=== PATIENT | female | born 1945 | race Caucasian/White ===

== ENCOUNTER 2018-05-05 08:55 | Inpatient (IN) | payer OTHER ==
[~2018-05-05] VITALS: Ht 154.9 cm; Wt 55.1 kg
[~2018-05-05 08:55] MED LIST: ATENOLOL25 M1 PO; AUGMENTIN 500M500 MG PO; AUGMENTIN 875 M1 TAB PO; AUGMENTIN 875875 MG PO; DAKINS TOP; DIAZEPAM2 M1 PO; DOCUSATE SODIU100 MG PO; Dulcolax PO; ESCITALOPRAM OXA5 MG PO; METAMUCIL1 PAC PO; MIRALAX17 GM PO; MULTIVITAMIN1 TAB PO; NORCO 325 MG-51 TAB PO; OMEPRAZOLE D/R20 MG PO; PREVACID15 M1 PO; SYNTHROID88 MCG PO; TRAMADOL HCL50 M1 PO; TRAMADOL50 MG PO; ULTRAM(MONOGRAP50 MG PO; VALIUM2 MG PO
--- NOTE | 2018-05-05 09:46 | ED GI/GU/ABDOMINAL COMPLAINT ---
History of Present Illness General Chief Complaint: General Adult Stated Complaint: SENT IN BY MD FOR VOMITING; ABD PAIN X 1WEEK Source: patient Exam Limitations: no limitations Vital Signs & Intake/Output Vital Signs & Intake/Output Vital Signs Date Time Temp Pulse Resp B/P B/P Pulse O2 O2 Flow FiO2 Mean Ox Delivery Rate 05/05 1556 99.1 75 18 146/75 98 Room Air 05/05 1420 98.7 74 20 137/67 98 Room Air 05/05 1252 98.7 77 20 125/70 99 Room Air 05/05 1108 98.3 80 20 129/60 100 Room Air 05/05 0902 99.1 76 16 112/77 95 Room Air Allergies Coded Allergies: Sulfa (Sulfonamide Antibiotics) (SWELLING 12/26/15) amoxicillin (UPSET STOMACH 12/26/15) clavulanic acid (UPSET STOMACH 12/26/15) Reconcile Medications Atenolol 25 MG TABLET 1 TAB PO DAILY HEART (Reported) Escitalopram Oxalate 5 MG TABLET 1.5 TAB PO DAILY MENTAL HEALTH (Reported) Lansoprazole (Prevacid) 15 MG CAPSULE.DR 1 CAP PO DAILY GI (Reported) Levothyroxine Sodium (Synthroid) 88 MCG TABLET 1 TAB PO DAILY AC THYROID ( Reported) Triage Note: 72 Y/O FEMALE C/O DIFFUSE ABDOMINAL PAIN SINCE LAST FRIDAY. PT STATES HX COLOSTOMY AND STATES THIS FEELS "DIFFERENT". STATES THE PAIN IS AROUND UMBILICUS AND RUQ, OCCASIONALLY RADIATING INTO R FLANK. +N, VOMITED X 1 FRIDAY AND AGAIN FRIDAY. STATES COLOSTOMY IS DRAINING "NORMAL" STOOL AND IN "NORMAL" AMOUNTS. DENIES URINARY SYMPTOMS OTHER THAN URINE BEING "DARK, I AM DEHYDRATED". TEMPERATURE 99.2 AT HOME PER PT. TAKEN TO ROOM 2 FOR EVAL CHANGING INTO GOWN. Triage Nurses Notes Reviewed? yes LMP (ages 10-50): post menopausal, unknown ? N Is pt currently ? No Onset: Abrupt Duration: week(s): (1), constant, continues in ED, getting worse Timing: single episode today Quality/Severity: fullness, moderate, sharpness Severity Numbers: 8 Location: periumbilical Radiation: no radiation Activities at Onset: none Prior Abdominal Problems: similar symptoms Past Sexual History: Unobtainable at this time No Modifying Factors: none Associated Symptoms: abdominal pain, heartburn, loss of appetite, nausea/ vomiting HPI: 72-year-old female past medical history of esophagitis, scleroderma, diverticulitis status post colostomy presents for evaluation of periumbilical abdominal pain nausea and vomiting. Patient reports symptoms started about one week ago with the abdominal pain and nausea. She has been taking Prevacid without any improvement. She has been unable to eat and drink much due to the pain nausea and vomiting. She reports several days ago the pain started to radiate up into her throat and chest. She describes as a burning pain. It is similar to previous but more severe. No recent abdominal surgeries. She feels like normal stool is moving into her colostomy without blood or melena. No hematemesis. She has had low-grade temps at home. She denies shortness of breath hemoptysis or lower extremity edema urinary symptoms. (Ben Crystal) Past History Travel History Traveled to [place] past 21 day No Medical History Any Pertinent Medical History? see below for history Neurological: NONE EENT: NONE Cardiovascular: hyperlipidemia, PALPITATIONS Respiratory: NONE Gastrointestinal: diverticulitis, COLONIC STRICTURE COLOSTOMY Hepatic: NONE Renal: NONE Musculoskeletal: fracture (fracture of malleolas ), REYNAUDS Psychiatric: NONE Endocrine: hypothyroidism Blood Disorders: NONE Cancer(s): NONE RETAIL SALES SPECIALIST/Reproductive: NONE History of MRSA: No History of VRE: No History of CDIFF: No Surgical History Surgical History: appendectomy, colon resection, COLOSTOMY Psychosocial History Who do you live with Spouse Services at Home None What is your primary language Mongolian Tobacco Use: Never used Family History Hx Contributory? No (Ben Crystal) Review of Systems Review of Systems Constitutional: Reports: no symptoms. EENTM: Reports: no symptoms. Respiratory: Reports: no symptoms. Cardiovascular: Reports: no symptoms. GI: Reports: see HPI, abdominal pain, nausea, vomiting. Genitourinary: Reports: no symptoms. Musculoskeletal: Reports: no symptoms. Skin: Reports: no symptoms. Neurological/Psychological: Reports: no symptoms. Hematologic/Endocrine: Reports: no symptoms. Immunologic/Allergic: Reports: no symptoms. All Other Systems: Reviewed and Negative (Ben Crystal) Physical Exam Physical Exam General Appearance: well developed/nourished, no apparent distress, alert, awake Head: atraumatic, normal appearance Eyes: Bilateral: normal appearance, PERRL, EOMI. Ears, Nose, Throat, Mouth: hearing grossly normal, moist mucous membrane Neck: normal inspection, supple, full range of motion Respiratory: normal breath sounds, chest non-tender, no respiratory distress, lungs clear Cardiovascular: regular rate/rhythm, normal peripheral pulses Peripheral Pulses: 2+ radial (R), 2+ radial (L) Gastrointestinal: normal bowel sounds, soft, no organomegaly, tenderness ( PERIUMBILICAL, EPIGASTRIC ) Back: normal inspection, normal range of motion, no vertebral tenderness Extremities: normal range of motion Neurologic/Psych: no motor/sensory deficits, awake, alert, oriented x 3, normal gait Skin: intact, normal color, warm/dry Core Measures ACS in differential dx? No Sepsis Present: No Sepsis Focused Exam Completed? No (Akash JOHNSON,Ben) Progress Differential Diagnosis: AAA, AMI, biliary colic, bowel obstruction, colon cancer , cholecystitis, diverticulitis, gastritis, ischemic bowel, inflamm bowel dis, kidney stone, Manju-Stanley tear, pancreatitis, PID/cervicitis, peptic ulcer, PUD /GERD, SBO, UTI/pyelo Plan of Care: Orders Procedure Date/time Status Nothing by Mouth 05/06 B Active Pathway - chart 05/05 1700 Active Code Status 05/05 1700 Active Patient Data 05/05 1624 Active Admit to inpatient 05/05 1504 Active Intake & Output 05/05 1011 Active EKG 05/05 0946 Active URINALYSIS 05/05 0911 Complete TROPONIN LEVEL 05/05 0911 Complete LIPASE 05/05 0911 Complete COMPREHENSIVE METABOLIC PANEL 05/05 0911 Complete CBC WITHOUT DIFFERENTIAL 05/05 0911 Complete VTE Mechanical Prophylaxis 05/05 UNK Active Vital Signs 05/05 UNK Active Intake & Output 05/05 UNK Active Activity/Ambulation 05/05 UNK Active Current Medications Sig/Abundio Start time Last Medication Dose Stop Time Status Admin Atenolol 25 MG DAILY 05/06 09 UNVr (Tenormin) Escitalopram Oxalate 7.5 MG DAILY 05/06 09 UNVr (Lexapro) Levothyroxine Sodium 0.088 MG DAILY AC 05/06 07 UNVr (Synthroid) Heparin Sodium 5,000 UNIT Q8 05/05 2200 UNVr (Porcine) Pantoprazole Sodium 40 MG BID 05/05 2200 UNVr (Protonix) Dextrose/Sodium 1,000 ML .Q10H 05/05 1700 UNVr Chloride (D5W-1/2 Normal Saline 1000ML) Ondansetron HCl 4 MG Q8P PRN 05/05 1700 UNVr (Zofran) Laboratory Tests 05/05/18 1125: Urine Color YEL, Urine Clarity CLEAR, Urine pH 6.0, Ur Specific Hiram <= 1.005 , Urine Protein NEG, Urine Ketones 15 H, Urine Nitrite NEG, Urine Bilirubin NEG , Urine Urobilinogen 0.2, Ur Leukocyte Esterase NEG, Ur Microscopic EXAM NOT REQUIRED, Urine Hemoglobin NEG, Urine Glucose NEG 05/05/18 0957: Anion Gap 16, Estimated GFR > 60, BUN/Creatinine Ratio 21.1, Glucose 88, Calcium 10.1, Total Bilirubin 0.7, AST 59 H, ALT 52, Alkaline Phosphatase 96, Troponin I < 0.01, Total Protein 7.9, Albumin 4.8, Globulin 3.1, Albumin/Globulin Ratio 1.5, Lipase 98, CBC w Diff NO MAN DIFF REQ, RBC 5.02, MCV 89.6, MCH 30.5, MCHC 34.0, RDW 13.7, MPV 9.4, Gran % 78.4 H, Lymphocytes % 13.8 L, Monocytes % 7.1, Eosinophils % 0.3, Basophils % 0.4, Absolute Granulocytes 6.4, Absolute Lymphocytes 1.1 L, Absolute Monocytes 0.6, Absolute Eosinophils 0, Absolute Basophils 0 Patient is here with periumbilical abdominal pain nausea and vomiting. On exam her vital signs are stable. She has diffuse abdominal pain worse in the epigastric and periumbilical areas. Labs CT scans of the chest, pelvis ordered. EKG ordered. Patient medicated with IV Protonix fluids Zofran and GI cocktail. Blood work is not showing any significant acute finding. CT scan does show evidence of a high-grade small bowel obstruction and esophagitis. Patient is still reporting significant nausea and diffuse abdominal pain. Spoke with Dr. Marti who has seen the patient in the past he recommends admission for bowel rest and fluids. Patient was given IV Tylenol for additional pain control additional doses of Reglan and Zofran were required for nausea. There's been no vomiting here. Patient be admitted to general surgery for further evaluation and treatment case discussed with Dr. matos he agrees. Diagnostic Imaging: Viewed by Me: CT Scan. Discussed w/RAD: CT Scan. Radiology Impression: PATIENT: JOSE BENAVIDES PRESENT AGE: 72 PATIENT ACCOUNT NO: [id number] : 46 LOCATION: [facility] ORDERING PHYSICIAN: Ben JOHNSON SERVICE DATE: 05/05/18-1004 EXAM TYPE: CAT - CT ABD & PELVIS W IV CONTRAST; CT CHEST W IV CONTRAST EXAMINATION: CT CHEST WITH CONTRAST CT ABDOMEN AND PELVIS WITH CONTRAST CLINICAL INFORMATION: Epigastric pain radiating to the chest. COMPARISON: 09/18/2017. TECHNIQUE: Multidetector volumetric imaging was performed through the chest, abdomen and pelvis following the administration of 95 mL of Optiray 320 intravenous contrast. Sagittal and coronal reformatted images were obtained on the technologist's workstation. Axial MIP volume rendering provided. DLP: 339 mGy- cm. FINDINGS: CHEST: Lungs: The central airways are patent. Minimal dependent atelectasis bilaterally. No consolidation or pleural effusion. Scattered calcified granulomata noted. Mediastinum: The heart is of normal size. There is no pericardial effusion. Central vascular structures are unremarkable. No hilar or mediastinal lymphadenopathy. The esophagus is somewhat dilated with an air- fluid level proximally. There is prominent esophageal wall thickening at the mid to distal aspect. Chest Wall/Axilla: No lymphadenopathy. No chest wall mass. ABDOMEN/PELVIS: Liver, Gallbladder, Biliary Tree: The liver is normal in size, shape, and attenuation. No focal hepatic lesion or biliary ductal dilatation is present. The gallbladder is unremarkable with no evidence of radiopaque gallstones, gallbladder wall thickening, or pericholecystic inflammatory changes. Pancreas: Unremarkable. Spleen: Unremarkable. Adrenal Glands: Unremarkable. Kidneys and Ureters: The kidneys are normal in size, shape, and attenuation. No hydronephrosis, hydroureter or calculi seen. No perinephric stranding. Bladder: Unremarkable. Gastrointestinal Tract: The stomach is distended with no definite wall thickening. There is dilatation of the proximal small bowel involving the duodenum and jejunum extending to a transition point in the anterior central abdomen, series 2 image 87. The distal small bowel is decompressed. There is a left lower quadrant colostomy. Much of the colon is also decompressed. Colonic diverticulosis noted without diverticulitis. No free air or free fluid. Abdominal Wall: No hernia seen. Left lower quadrant colostomy. Lymphovascular Structures: Lymph nodes: Normal. Vascular: Normal caliber aorta. Mild atherosclerotic calcifications. Pelvic Viscera: The uterus is not seen. No adnexal mass. OSSEOUS STRUCTURES: No suspicious sclerotic or lytic bone lesions are identified. Mild degenerative change of the spine. IMPRESSION: 1. Prominent esophageal wall thickening, suspicious for esophagitis. 2. Dilated small bowel with a transition point in the midabdomen, consistent with a small bowel obstruction. There is decompression of the distal small bowel and colon, suggesting this may be high-grade. DICTATED BY: Álvaro Soliz MD DATE/TIME DICTATED:05/05/181127 INTERNAL MEDICINE NURSE PRACTITIONER:YOMAIRA DATE/TIME TRANSCRIBED:05/05/181127 CONFIDENTIAL, DO NOT COPY WITHOUT APPROPRIATE AUTHORIZATION. <Electronically signed in Other Vendor System> SIGNED BY: Álvaro Soliz MD 05/05/18 1138 Initial ED EKG: normal sinus rhythm, LEFT ATRIAL ABN (Ben Crystal) Departure Departure Disposition: STILL A PATIENT Condition: Stable Clinical Impression Primary Impression: SBO (small bowel obstruction) Referrals: Timothy KRISHNAMURTHY,Alessio Guajardo (PCP/Family) Departure Forms: Customer Survey General Discharge Information Admission Note Spoke With: Dwight Marti Jr., DO Documentation of Exam: Documentation of any treatments & extenuating circumstances including Concerns Regarding Discharge (functional status, medication knowledge or non-compliance, living conditions, etc.) that warrant an admission rather than observation: [ Serial labs, bowel rest, surgical consult, IV FLUIDS ] (Ben Crystal) PA/WORLD HISTORY TEACHER Co-Sign Statement Statement: ED Attending supervision documentation- x I saw and evaluated the patient. I have also reviewed all the pertinent lab results and diagnostic results. I agree with the findings and the plan of care as documented in the PA's/WORLD HISTORY TEACHER's documentation. N/V, abdominal pain with SBO [] I have reviewed the ED Record and agree with the PA's/WORLD HISTORY TEACHER's documentation. [] Additions or exceptions (if any) to the PAs/WORLD HISTORY TEACHER's note and plan are summarized below: [] (Michele KRISHNAMURTHY,Fletcher)
[2018-05-05 10:05] LABS: ABSOLUTE BASOPHIL COUNT 0 /CUMM (0.0-0.2); ABSOLUTE EOSINOPHIL COUNT 0 /CUMM (0.0-0.7); ABSOLUTE GRANULOCYTE CT 6.4 /CUMM (1.4-6.5); ABSOLUTE LYMPH COUNT 1.1 /CUMM (1.2-3.4); ABSOLUTE MONOCYTE COUNT 0.6 /CUMM (0.10-0.60); BASOPHIL % 0.4 % (0.0-2.0); EOSINOPHIL % 0.3 % (0-5); GRANULOCYTE % 78.4 % (42.2-75.2); MEAN CORPUSCULAR HGB 30.5 PG (27.0-31.0); MEAN CORPUSCULAR VOLUME 89.6 FL (81.0-99.0); MEAN PLATELET VOLUME 9.4 FL (7.4-10.4); PLATELET COUNT 226 /CUMM (130-400); RBC DISTRIBUTION WIDTH 13.7 % (11.5-14.5); RED BLOOD CELL CT 5.02 /CUMM (4.20-5.40); WHITE BLOOD CELL COUNT 8.1 /CUMM (4.8-10.8)
--- NOTE | 2018-05-05 11:39 | CT SCAN REPORT ---
EXAMINATION: CT CHEST WITH CONTRAST CT ABDOMEN AND PELVIS WITH CONTRAST CLINICAL INFORMATION: Epigastric pain radiating to the chest. COMPARISON: 09/18/2017. TECHNIQUE: Multidetector volumetric imaging was performed through the chest, abdomen and pelvis following the administration of 95 mL of Optiray 320 intravenous contrast. Sagittal and coronal reformatted images were obtained on the technologist's workstation. Axial MIP volume rendering provided. DLP: 339 mGy-cm. FINDINGS: CHEST: Lungs: The central airways are patent. Minimal dependent atelectasis bilaterally. No consolidation or pleural effusion. Scattered calcified granulomata noted. Mediastinum: The heart is of normal size. There is no pericardial effusion. Central vascular structures are unremarkable. No hilar or mediastinal lymphadenopathy. The esophagus is somewhat dilated with an air-fluid level proximally. There is prominent esophageal wall thickening at the mid to distal aspect. Chest Wall/Axilla: No lymphadenopathy. No chest wall mass. ABDOMEN/PELVIS: Liver, Gallbladder, Biliary Tree: The liver is normal in size, shape, and attenuation. No focal hepatic lesion or biliary ductal dilatation is present. The gallbladder is unremarkable with no evidence of radiopaque gallstones, gallbladder wall thickening, or pericholecystic inflammatory changes. Pancreas: Unremarkable. Spleen: Unremarkable. Adrenal Glands: Unremarkable. Kidneys and Ureters: The kidneys are normal in size, shape, and attenuation. No hydronephrosis, hydroureter or calculi seen. No perinephric stranding. Bladder: Unremarkable. Gastrointestinal Tract: The stomach is distended with no definite wall thickening. There is dilatation of the proximal small bowel involving the duodenum and jejunum extending to a transition point in the anterior central abdomen, series 2 image 87. The distal small bowel is decompressed. There is a left lower quadrant colostomy. Much of the colon is also decompressed. Colonic diverticulosis noted without diverticulitis. No free air or free fluid. Abdominal Wall: No hernia seen. Left lower quadrant colostomy. Lymphovascular Structures: Lymph nodes: Normal. Vascular: Normal caliber aorta. Mild atherosclerotic calcifications. Pelvic Viscera: The uterus is not seen. No adnexal mass. OSSEOUS STRUCTURES: No suspicious sclerotic or lytic bone lesions are identified. Mild degenerative change of the spine. IMPRESSION: 1. Prominent esophageal wall thickening, suspicious for esophagitis. 2. Dilated small bowel with a transition point in the midabdomen, consistent with a small bowel obstruction. There is decompression of the distal small bowel and colon, suggesting this may be high-grade.
--- NOTE | 2018-05-05 16:29 | Admission Core Measures ---
Acute Coronary Syndrome (CM) ACS Core Measures Acute Coronary Syndrome Diagnosis No Congestive Heart Failure (NEW) CHF Core Measures Congestive Heart Failure Diagnosis No Cerebrovascular Accident CVA Core Measures CVA/TIA Diagnosis No Venous Thromboembolism VTE Core Ella (View Protocol) VTE Risk Factors Age>40 No Mechanical VTE Prophylaxis d/t N/A MechProphylax Ordered No VTE Pharm Prophylaxis d/t NA PharmProphylax ordered Problem List As ranked by this Provider includes Assessment & Plan 1. SBO (small bowel obstruction) HOME MEDS Home Med List Atenolol 25 MG TABLET 1 TAB PO DAILY HEART (Reported) Escitalopram Oxalate 5 MG TABLET 1.5 TAB PO DAILY MENTAL HEALTH (Reported) Lansoprazole (Prevacid) 15 MG CAPSULE.DR 1 CAP PO DAILY GI (Reported) Levothyroxine Sodium (Synthroid) 88 MCG TABLET 1 TAB PO DAILY AC THYROID ( Reported)
--- NOTE | 2018-05-05 17:08 | History & Physical ---
Derian Flanagan 05/05/18 1700: General Information and HPI MD Statement: I have seen and personally examined JOSE WILKINSON and documented this H&P. The patient is a 72 year old F who presented with a patient stated chief complaint of [abdominal pain, nausea and vomiting]. Source of Information: patient, family, old records Exam Limitations: no limitations History of Present Illness: Ms. Wilkinson is a 72-year-old female past medical history of hyperthyroidism, hypertension, past surgical history of colon resection with creation of colostomy, and open lysis of adhesion for small bowel obstruction in 2016 presents with a 6-day history of slowly worsening abdominal pain with 2 episodes of nausea and vomiting 3 days ago of previously eaten food. CAT scan evidence today reveals suggestion of high-grade small bowel obstruction and esophagitis. Her primary complaints at this time are of reflex in epigastric burning. This case was discussed with her surgical attending Dr. Marti who wishes to admit the patient for observation as she has been treated in the past for conservative management of previous small bowel obstructions. His hope is that this will also resolve with conservative treatment without surgical intervention. Allergies/Medications Allergies: Coded Allergies: Sulfa (Sulfonamide Antibiotics) (SWELLING 12/26/15) amoxicillin (UPSET STOMACH 12/26/15) clavulanic acid (UPSET STOMACH 12/26/15) Home Med list Atenolol 25 MG TABLET 1 TAB PO DAILY HEART (Reported) Escitalopram Oxalate 5 MG TABLET 1.5 TAB PO DAILY MENTAL HEALTH (Reported) Lansoprazole (Prevacid) 15 MG CAPSULE.DR 1 CAP PO DAILY GI (Reported) Levothyroxine Sodium (Synthroid) 88 MCG TABLET 1 TAB PO DAILY AC THYROID ( Reported) Past History Travel History Traveled to [place] past 21 day No Medical History Neurological: NONE EENT: NONE Cardiovascular: hyperlipidemia, PALPITATIONS Respiratory: NONE Gastrointestinal: diverticulitis, COLONIC STRICTURE COLOSTOMY Hepatic: NONE Renal: NONE Musculoskeletal: fracture (fracture of malleolas ), REYNAUDS Psychiatric: NONE Endocrine: hypothyroidism Blood Disorders: NONE Cancer(s): NONE HOST/HOSTESS HEAD/Reproductive: NONE History of MRSA: No History of VRE: No History of CDIFF: No Surgical History Surgical History: appendectomy, colon resection, COLOSTOMY Past Family/Social History Psychosocial History Services at Home: None Sexual History Past Sexual History Unobtainable at this time Review of Systems Review of Systems Constitutional: Denies: no symptoms, see HPI, chills, diaphoresis, fever, malaise, weakness, unexplained weight loss. Exam & Diagnostic Data Last 24 Hrs of Vital Signs/I&O Vital Signs Date Time Temp Pulse Resp B/P B/P Pulse O2 O2 Flow FiO2 Mean Ox Delivery Rate 05/05 1556 99.1 75 18 146/75 98 Room Air 05/05 1420 98.7 74 20 137/67 98 Room Air 05/05 1252 98.7 77 20 125/70 99 Room Air 05/05 1108 98.3 80 20 129/60 100 Room Air 05/05 0902 99.1 76 16 112/77 95 Room Air Intake & Output 05/05 1600 05/05 0800 05/05 0000 Intake Total 1000 Output Total Balance 1000 Intake, IV 1000 Patient 112 lb Weight Weight Reported by Patient Measurement Method Last 24 Hrs of Labs/Dariel: Laboratory Tests 05/05/18 1125: Urine Color YEL, Urine Clarity CLEAR, Urine pH 6.0, Ur Specific [place] <= 1.005 , Urine Protein NEG, Urine Ketones 15 H, Urine Nitrite NEG, Urine Bilirubin NEG , Urine Urobilinogen 0.2, Ur Leukocyte Esterase NEG, Ur Microscopic EXAM NOT REQUIRED, Urine Hemoglobin NEG, Urine Glucose NEG 05/05/18 0957: Anion Gap 16, Estimated GFR > 60, BUN/Creatinine Ratio 21.1, Glucose 88, Calcium 10.1, Total Bilirubin 0.7, AST 59 H, ALT 52, Alkaline Phosphatase 96, Troponin I < 0.01, Total Protein 7.9, Albumin 4.8, Globulin 3.1, Albumin/Globulin Ratio 1.5, Lipase 98, CBC w Diff NO MAN DIFF REQ, RBC 5.02, MCV 89.6, MCH 30.5, MCHC 34.0, RDW 13.7, MPV 9.4, Gran % 78.4 H, Lymphocytes % 13.8 L, Monocytes % 7.1, Eosinophils % 0.3, Basophils % 0.4, Absolute Granulocytes 6.4, Absolute Lymphocytes 1.1 L, Absolute Monocytes 0.6, Absolute Eosinophils 0, Absolute Basophils 0 Diagnostic Data Other Results SERVICE DATE: 05/05/18 EXAM TYPE: CAT - CT ABD & PELVIS W IV CONTRAST; CT CHEST W IV CONTRAST EXAMINATION: CT CHEST WITH CONTRAST CT ABDOMEN AND PELVIS WITH CONTRAST CLINICAL INFORMATION: Epigastric pain radiating to the chest. COMPARISON: 09/18/2017. TECHNIQUE: Multidetector volumetric imaging was performed through the chest, abdomen and pelvis following the administration of 95 mL of Optiray 320 intravenous contrast. Sagittal and coronal reformatted images were obtained on the technologist's workstation. Axial MIP volume rendering provided. DLP: 339 mGy-cm. FINDINGS: CHEST: Lungs: The central airways are patent. Minimal dependent atelectasis bilaterally. No consolidation or pleural effusion. Scattered calcified granulomata noted. Mediastinum: The heart is of normal size. There is no pericardial effusion. Central vascular structures are unremarkable. No hilar or mediastinal lymphadenopathy. The esophagus is somewhat dilated with an air-fluid level proximally. There is prominent esophageal wall thickening at the mid to distal aspect. Chest Wall/Axilla: No lymphadenopathy. No chest wall mass. ABDOMEN/PELVIS: Liver, Gallbladder, Biliary Tree: The liver is normal in size, shape, and attenuation. No focal hepatic lesion or biliary ductal dilatation is present. The gallbladder is unremarkable with no evidence of radiopaque gallstones, gallbladder wall thickening, or pericholecystic inflammatory changes. Pancreas: Unremarkable. Spleen: Unremarkable. Adrenal Glands: Unremarkable. Kidneys and Ureters: The kidneys are normal in size, shape, and attenuation. No hydronephrosis, hydroureter or calculi seen. No perinephric stranding. Bladder: Unremarkable. Gastrointestinal Tract: The stomach is distended with no definite wall thickening. There is dilatation of the proximal small bowel involving the duodenum and jejunum extending to a transition point in the anterior central abdomen, series 2 image 87. The distal small bowel is decompressed. There is a left lower quadrant colostomy. Much of the colon is also decompressed. Colonic diverticulosis noted without diverticulitis. No free air or free fluid. Abdominal Wall: No hernia seen. Left lower quadrant colostomy. Lymphovascular Structures: Lymph nodes: Normal. Vascular: Normal caliber aorta. Mild atherosclerotic calcifications. Pelvic Viscera: The uterus is not seen. No adnexal mass. OSSEOUS STRUCTURES: No suspicious sclerotic or lytic bone lesions are identified. Mild degenerative change of the spine. IMPRESSION: 1. Prominent esophageal wall thickening, suspicious for esophagitis. 2. Dilated small bowel with a transition point in the midabdomen, consistent with a small bowel obstruction. There is decompression of the distal small bowel and colon, suggesting this may be high-grade. Assessment/Plan Assessment: Ms. Wilkinson is a 72-year-old female known to the surgical service for previous Jacobs's procedure with subsequent open small bowel obstruction lysis of adhesions presents today with similar symptoms. There is also a CAT scan taken today consistent with small bowel obstruction and esophagitis. Plan Admit to the surgical service under Dr. Sommer watson N.p.o. now IV fluids IV PPI twice daily We will hold NG tube for now but with vomiting will place Serial abdominal exams As Ranked By This Provider Problem List: 1. SBO (small bowel obstruction) Core Measures/Misc (07/20) Acute Coronary Syndrome ACS Diagnosis: No Congestive Heart Failure Congestive Heart Failure Diagnosis No Cerebrovascular Accident CVA/TIA Diagnosis: No VTE (View Protocol) VTE Risk Factors Age>40 No Mechanical VTE Prophylaxis d/t N/A MechProphylax Ordered No VTE Pharm Prophylaxis d/t NA PharmProphylax ordered Sepsis (View protocol) Sepsis Present: No If YES complete Sepsis Event Note If YES complete Sepsis Event Note Dwight Marti DO 05/05/18 1810: Core Measures/Misc (07/20) Sepsis (View protocol) If YES complete Sepsis Event Note If YES complete Sepsis Event Note Attending MD Review Statement Attending Statement Attending MD Statement: examined this patient, discuss w/resident/PA/COLOR CONTROL OPERATOR, agreed w/resident/PA/COLOR CONTROL OPERATOR, discussed with family, reviewed EMR data (avail), reviewed images, amended to note Attending Assessment/Plan: Pt is well known to me S/p La's operation for complcited diverticulitis and subsequent failed reversal of stoma Presents today with one week abdominal pain , decreased stoma output and internmitent nausea and vomiting Clinical picture and CT scan findings consistent with NGT placed in ER Plan : admit , NPO , IVF and continue NGT Please get abdominal Xray in AM
[2018-05-05 22:10] VITALS: BP 130/72
[2018-05-06 06:26] VITALS: BP 112/60
--- NOTE | 2018-05-06 09:34 | PN- General Surgery ---
See Addendum Subjective Subjective: feeling much better, no n/v. ostomy starting to function. denies abd pain. no cp/sob. wants ngt out Objective Vital Signs and I&Os Vital Signs Date Time Temp Pulse Resp B/P B/P Pulse O2 O2 Flow FiO2 Mean Ox Delivery Rate 05/06 0757 68 116/68 07/04 0626 98.0 67 20 112/60 96 07/ 2210 98.5 71 18 130/72 99 Room Air 07/ 1837 99.0 71 18 138/67 98 Room Air 07/ 1556 99.1 75 18 146/75 98 Room Air 07/ 1420 98.7 74 20 137/67 98 Room Air 07/ 1252 98.7 77 20 125/70 99 Room Air / 1108 98.3 80 20 129/60 100 Room Air Intake & Output 05/06 1600 / 0800 07/04 0000 07/ 1600 / 0800 / 0000 Intake Total 379 760 4398 Output Total 570 220 Balance 973 424 2413 Intake, IV 821 594 8236 Output, 70 220 Gastric Drainage Output, Stool 0 Output, Urine 500 Patient 112 lb 112 lb 112 lb Weight Weight Bed scale Reported by Patient Reported by Patient Measurement Method Physical Exam: gen- nad card- s1s2 rrr pulm- ctab abd- soft, nt. stoma pink/viable, appliance in place, small amt liquid brown stool and gas in bag. ngt to lcws, minimal clear/bilious out. ext- calves soft nt bl Assessment/Plan Assessment/Plan A- HD2 with SBO- recurrent, hx hartmans, with resolution of abd pain and slow reutrn of ostomy function P- oob, ambulate ngt to lcws. ?clamping trial vs dc iv ppi ivf, npo. fu axr will dw attending Core Measures Venous Thromboembolism VTE Risk Factors Age>40 No Mechanical VTE Prophylaxis d/t N/A MechProphylax Ordered No VTE Pharm Prophylaxis d/t NA PharmProphylax ordered
--- NOTE | 2018-05-06 12:56 | RADIOLOGY REPORT ---
EXAMINATION: XR ABDOMEN MULTIPLE VIEWS CLINICAL INDICATION: Follow-up small bowel obstruction; status-post nasogastric tube placement. COMPARISON: CT abdomen and pelvis dated 05/05/2018; abdominal radiographs dated 12/30/2015. TECHNIQUE: Supine and upright views of the abdomen and pelvis are submitted. FINDINGS: There is a nonspecific bowel gas pattern, without findings to suggest obstruction or ileus. A left lower quadrant ostomy appliance is noted. A nasogastric tube is seen, with tip projecting over the gastric body. There is no free intraperitoneal air seen. No unusual soft tissue calcifications are seen. There is no acute osseous abnormality. IMPRESSION: 1. No obstruction, ileus or free intraperitoneal air seen. 2. Nasogastric tube tip is situated at the level of the gastric body.
[2018-05-06 14:20] VITALS: BP 128/68
[2018-05-06 22:39] VITALS: BP 106/70
[2018-05-07 07:01] VITALS: BP 110/68
--- NOTE | 2018-05-07 07:51 | PN- General Surgery ---
See Addendum Subjective Subjective: Awake, alert No complaints overnight Denies any pain or nausea Tolerating clear liquids Ostomy is functioning Objective Vital Signs and I&Os Vital Signs Date Time Temp Pulse Resp B/P B/P Pulse O2 O2 Flow FiO2 Mean Ox Delivery Rate 05/07 0701 97.8 78 16 110/68 95 / 2239 98.4 60 16 106/70 98 Room Air 05/06 1420 98.4 64 18 128/68 99 Room Air 05/06 0757 68 116/68 Intake & Output 05/07 0805/07 0000 05/06 1600 05/06 0800 05/06 0000 05/05 1600 Intake Total 60 460 800 898 560 1255 Output Total 300 800 800 570 220 Balance -240 -340 0 599 917 3884 Intake, IV 400 800 587 684 0924 Intake, Oral 60 60 0 Number 0 Bowel Movements Output, 300 70 220 Gastric Drainage Output, Stool 0 Output, Urine 300 800 500 500 Patient 122 lb 112 lb 112 lb 112 lb Weight Weight Bed scale Bed scale Reported by Patient Reported by Patient Measurement Method Physical Exam: vss, afebrile General: alert and oriented times three Chest: clear anteriorly bilaterally Abd: soft, good bs, nondistended, nontender Ostomy: air and stool in bag Current Medications: Current Medications Sig/Abundio Start time Last Medication Dose Route Stop Time Status Admin Atenolol 25 MG DAILY 05/06 900 AC 05/06 PO 0757 Benzocaine/Menthol 1 LORENA Q2P PRN 05/05 2115 AC 05/06 PO 2139 Dextrose/Sodium 1,000 ML .Q10H 05/05 1700 AC 05/07 Chloride IV 0616 Escitalopram Oxalate 7.5 MG DAILY 05/06 900 AC 05/06 PO 0757 Heparin Sodium 5,000 UNIT Q8 05/05 2200 AC 05/07 (Porcine) SC 0605 Levothyroxine Sodium 0.088 MG DAILY AC 05/06 07 AC 05/07 PO 0605 Ondansetron HCl 4 MG Q8P PRN 05/05 1700 AC IV Pantoprazole Sodium 40 MG DAILY 05/07 900 AC IV Pantoprazole Sodium 40 MG BID 05/05 2200 DC 05/06 IV 0756 Assessment/Plan Assessment/Plan 72yo female s/p Hartmanns admitted with sbo advance to full liquids dc planning hep sc for dvt ppx/alps Core Measures Venous Thromboembolism VTE Risk Factors Age>40 No Mechanical VTE Prophylaxis d/t N/A MechProphylax Ordered No VTE Pharm Prophylaxis d/t NA PharmProphylax ordered
--- NOTE | 2018-05-07 14:19 | Patient Discharge Instructions ---
Discharge Instructions General Discharge Information You were seen/treated for: small bowel obstruction You had these procedures: NG tube Watch for these problems: increased abdominal pain or nausea/vomiting Diet Continue normal diet: Yes Activity Full Activity/No Limits: Yes Acute Coronary Syndrome Inclusion Criteria At DC or during hospital stay patient has or had the following: ACS DIAGNOSIS No Discharge Core Measures Meds if any: Prescribed or Continued at Discharge Meds if any: NOT Prescribed or Continued at Discharge Congestive Heart Failure Inclusion Criteria At DC or during hospital stay patient has or had the following: CHF DIAGNOSIS No Discharge Core Measures Meds if any: Prescribed or Continued at Discharge Meds if any: NOT Prescribed or Continued at Discharge Cerebrovascular accident Inclusion Criteria At DC or during hospital stay patient has or had the following: CVA/TIA Diagnosis No Discharge Core Measures Meds if any: Prescribed or Continued at Discharge Meds if any: NOT Prescribed or Continued at Discharge Venous thromboembolism Inclusion Criteria VTE Diagnosis No VTE Type NONE VTE Confirmed by (Test) NONE Discharge Core Measures - Per Current guidelines, there needs to be overlap - treatment for the first 5 days of Warfarin therapy. - If discharged on Warfarin prior to 5 days of - overlap therapy, the patient will need to be - assessed for post discharge needs including - *Post discharge parental anticoagulation - *Warfarin and/or parental anticoagulation education - *Follow up date to check INR post discharge At least 5 days overlap therapy as Inpatient No Meds if any: Prescribed or Continued at Discharge Note: Overlap Therapy is Warfarin and Anticoagulant Meds if any: NOT Prescribed or Continued at Discharge
--- NOTE | 2018-05-07 14:22 | Surg Short-stay <48hrs Dis Sum ---
Visit Information Visit Dates Admission Date: 05/05/18 Discharge Date: 05/07/2018 Surgical Short Stay DC Summary Admission Diagnosis: small bowel obstruction Final Diagnosis: SBO- resolved Procedure(s): NGT placement Summary/Significant Findings: Pt was admitted with a recurrent sbo on 05/05. She had an NGT for one day. Her NGT was removed on HD 2 and she was begun on clears after passing flatus. Her abdomen remained soft and her diet was advanced to LRD on HD 2 which she tolerated and was discharged home. She remained pain free and without nausea. Condition at Discharge: good Discharge Disposition: home or self care Discharge instructions provided to patient/family: Yes Post discharge follow-up plan: As needed with Dr Marti
== END 2018-05-07 15:13 | DRG 390 ==
LOC: ERH 08:55 → ERHI 15:04 → 2NB 15:04 → ENRESERV 17:11 → ENTRNSPT 18:58 → EDTRNSPT 19:04 → EDTRNSPTSTS 19:04 → 2NB 19:07 → CMPTRNSPT 19:26 → ENTRNSPT 05-07 14:57 → EDTRNSPTSTS 05-07 14:58 → EDTRNSPT 05-07 14:59 → 2NB 05-07 15:13 → CMPTRNSPT 05-07 15:17
PROVIDERS: Physician Assistant Medical
DX: K56.609 Unspecified intestinal obstruction, unspecified as to partial versus complete obstruction (principal); E03.9 Hypothyroidism, unspecified; Z93.3 Colostomy status; K20.9 Esophagitis, unspecified; M34.9 Systemic sclerosis, unspecified; I10 Essential (primary) hypertension; Z88.1 Allergy status to other antibiotic agents; Z88.2 Allergy status to sulfonamides; Z88.8 Allergy status to other drugs, medicaments and biological substances; E78.5 Hyperlipidemia, unspecified; I73.00 Raynaud's syndrome without gangrene; Z90.49 Acquired absence of other specified parts of digestive tract
CPT/HCPCS: 2NBSP; 74021; 74177; 81003; 93005; 93010; 96361; 96374; 96375; J0131; J1644; J2405; J2765; J7042